=== PATIENT | female | born 1995 | race Caucasian/White ===

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

== ENCOUNTER 2017-08-04 05:20 | Emergency (ER) | payer SELFPAY ==
[2017-08-04] MEDS ORDERED: IPRATROPIUM/ALBUTEROL SULFATE 3 ML AMPUL.NEB NEB ONE ×2 (05:54→05:55)
[2017-08-04] MEDS ORDERED: ALBUTEROL SULFATE 2.5 MG/3 ML AMPUL.NEB NEB ONE (05:56)
--- NOTE | 2017-08-04 06:01 | ED Physician Documentation ---
Dyspnea - HISTORIAN Historian: patient - HPI Stated Complaint: difficulty breathing Chief Complaint: Dyspnea Additional Information: PT SOB WHEEZING HX ASTHMA OUT OF ALBUTEROL Onset: other (PRKOGRESSIVE SINCE YESTERDAY PM) Duration: continues in ED Initiating Event: out of meds. denies: exposure to smoke Severity: moderate Exacerbated By: change in position, exertion, coughing Associated Symptoms: none - ROS CONST: other (JUST SOB) EYES/ENT: denies: problems with vision, sore throat GI/: denies: problems urinating, vomiting MS/SKIN/LYMPH: none. denies: muscle aches - PAST HX Lung Disease: asthma PE Risk Factors: none Surgeries/Procedures: other (FACIAL RECONSTRUCTION) Other History: none Immunizations: UTD Allergies/Adverse Reactions: Allergies Allergy/AdvReac Type Severity Reaction Status Date / Time No Known Drug Allergies Allergy Verified 08/04/17 05:27 - SOCIAL HX Smoking History: non-smoker Alcohol Use: none Drug Use: none - FAMILY HX Family History: no significant history - VITAL SIGNS Vital Signs: Vital Signs Temp Pulse Resp BP Pulse Ox 97.6 F 83 18 133/92 98 08/04/17 05:24 08/04/17 05:24 08/04/17 05:24 08/04/17 05:24 08/04/17 05:24 - REVIEWED ASSESSMENTS Nursing Assessment Reviewed: Yes Vitals Reviewed: Yes ED Results Lab/Radiology - Orders Orders: ED Orders Category Date Time Status Albuterol Sulfate [Ventolin] Med 08/04/17 05:56 Once 2.5 mg NEB NOW ONE Ipratropium/Albuterol Sulfate [Duoneb] Med 08/04/17 05:54 Discontinued 3 ml NEB .STK-MED ONE Ipratropium/Albuterol Sulfate [Duoneb] Med 08/04/17 05:55 Once 3 ml NEB NOW ONE Dyspnea Physical Exam - EXAM General Appearance: moderate distress, other (KIANA W LIZZY FREITAS IN AMBULANCE) EENT: eye inspection normal Respiratory: no resp. distress, prolonged expirations, wheezes, rales CVS: reg. rate & rhythm, no murmur, pulses equal Abdomen: non-tender Skin: no rash. No: cyanosis, diaphoresis Extremities: non-tender, normal range of motion, no evidence of injury, no edema Neuro/Psych: oriented x3, motor nml, sensation nml, mood/affect nml Discharge Clincal Impression: acute exaberation asthma, pt out of albuterol medicine Referrals: Nicole Waller MD [Primary Care Provider] - 2 Days Comments: pt responded well to the two treatments stating she desires go home--we will order renewed alb nebulizer Condition: Good Disposition: 01 HOME, SELF-CARE Decision to Admit: NO Decision Time: 06:53
[2017-08-04 07:08] VITALS: BP 122/77
== END 2017-08-04 06:59 | disposition home or self-care (01) ==
LOC: ED 05:20
DX: J45.901 Unspecified asthma with (acute) exacerbation (principal)
CPT/HCPCS: 99283

== ENCOUNTER 2018-05-08 13:35 | Emergency (ER) | payer SELFPAY ==
--- NOTE | 2018-05-08 13:59 | ED Physician Documentation ---
General Adult - HISTORIAN Historian: patient, spouse - HPI Stated Complaint: back pain Chief Complaint: General Adult Additional Information: A week ago, had two days of right flank pain. That resolved, and yesterday she had L flank pain and that continues today. Has not had fever, urinary frequency or dysuria. Feels some pressure in her back with a deep breath. No treatment attempted. No other modifying factors or associated signs. - ROS CONST: denies: fever NEURO/PSYCH: headache (yesterday, resolved with ibuprofen) - PAST HX Past History: other (depression) Allergies/Adverse Reactions: Allergies Allergy/AdvReac Type Severity Reaction Status Date / Time No Known Drug Allergies Allergy Verified 09/15/17 05:15 Home Medications: Ambulatory Orders Medication Instructions Recorded Cyclobenzaprine HCl [Flexeril] 10 mg PO HS #7 tablet 05/08/18 - SOCIAL HX Smoking History: non-smoker - FAMILY HX Family History: No - VITAL SIGNS Vital Signs: Vital Signs Temp Pulse Resp BP Pulse Ox 126/88 09/15/17 06:33 - REVIEWED ASSESSMENTS Nursing Assessment Reviewed: Yes Vitals Reviewed: Yes Progress - Progress Progress: 1430, feel better after toradol and norflex ED Results Lab/Radiology - Orders Orders: ED Orders Category Date Time Status URINALYSIS Routine Lab 05/08/18 Ordered URINE HCG [URINE HCG] Stat Lab 05/08/18 Uncollected General Adult Physical Exam - PHYSICAL EXAM GENERAL APPEARANCE: mild distress EENT: eye inspection normal, ENT inspection normal NECK: normal inspection RESPIRATORY: no resp distress, breath sounds normal CVS: reg rate & rhythm, heart sounds normal, no murmur BACK: normal inspection, no CVA tenderness, other (no vertebral tenderness) EXTREMITIES: normal range of motion (gait and stance), no evidence of injury NEURO: CN's nml as tested, motor nml, sensation nml, cognition normal Discharge Clincal Impression: Strain of lumbar paraspinal muscle Qualifiers: Encounter type: initial encounter Qualified Code(s): S39.012A - Strain of muscle, fascia and tendon of lower back, initial encounter Referrals: Nicole Waller MD [Primary Care Provider] - 2 Days Additional Instructions: Ice or gentle heat to the sore areas for 30 minutes of each hour you are awake, followed by gentle stretching. You can take 1000 mg or tylenol every 8 hours if needed for discomfort. You can also take 600 mg ibuprofen with food every 8 hours if needed. Condition: Good Disposition: HOME, SELF-CARE Decision to Admit: NO Decision Time: 14:37
[2018-05-08] MEDS ORDERED: ORPHENADRINE CITRATE 60 MG/2ML IM ONE (14:03)
[2018-05-08] MEDS ORDERED: KETOROLAC TROMETHAMINE 60 MG/2 ML VIAL IM ONE (14:03)
[2018-05-08 14:07] LABS: APPEARANCE,URINE CLEAR (CLEAR); COLOR,URINE YELLOW (YELLOW); OCCULT BLOOD,URINE NEGATIVE (NEGATIVE); URINE HCG NEGATIVE (NEGATIVE); UROBILINOGEN URINE 0.2 Eu (0.2-1.0)
[2018-05-08 14:59] VITALS: BP 126/66
== END 2018-05-08 14:40 | disposition home or self-care (01) ==
LOC: ED 13:35
DX: S39.012A Strain of muscle, fascia and tendon of lower back, initial encounter (principal); X58.XXXA Exposure to other specified factors, initial encounter; Y92.9 Unspecified place or not applicable; Y93.9 Activity, unspecified; Y99.9 Unspecified external cause status
CPT/HCPCS: 81002; 81025; J1885; J2360; 96372; 99284

== ENCOUNTER 2018-10-23 02:13 | Emergency (ER) | payer SELFPAY ==
--- NOTE | 2018-10-23 02:23 | ED Physician Documentation ---
Female Urogenital Problems - HISTORIAN Historian: patient - HPI Stated Complaint: vaginal bleeding Chief Complaint: Female Urogenital Problems Additional Information: Patient presents to ED with vaginal bleeding after taking pill. Patient states she took the pill this morning. Throughout the day she has had heavy bleeding but tonight she passed a large clot (the size of her hand). After that she became light-headed and nauseated. Onset: hours (2) Severity: moderate - Vaginal Bleeding Compared to Menstrual Periods: severe, passing tissue Sexual History: active Contraceptive: other ( pill) - Associated Symptoms Urinary Symptoms: none - ROS CONST: none GI/: nausea CVS/RESP: none EYES/ENT: none NEURO/PSYCH: none MS/SKIN/LYMPH: none - PAST HX Past History: induced Other History: none Surgeries/Procedures: none Allergies/Adverse Reactions: Allergies Allergy/AdvReac Type Severity Reaction Status Date / Time No Known Drug Allergies Allergy Verified 09/15/17 05:15 Home Medications: Ambulatory Orders Medication Instructions Recorded Cyclobenzaprine HCl [Flexeril] 10 mg PO HS #7 tablet 05/08/18 Ondansetron HCl Rapdis [Zofran Odt] 4 mg PO Q8 PRN #15 tab 10/23/18 - SOCIAL HX Smoking History: non-smoker Alcohol Use: none Drug Use: none - FAMILY HX Family History: none - VITAL SIGNS Vital Signs: Vital Signs Temp Pulse Resp BP Pulse Ox 126/66 05/08/18 14:57 - REVIEWED ASSESSMENTS Nursing Assessment Reviewed: Yes Vitals Reviewed: Yes Progress - Progress Progress: 0300 Patient feeling better after some fluids and Zofran. Female Urogenital Problems - EXAM General Appearance: no acute distress EENT: WILL Neck: nml inspection Respiratory: no resp. distress, breath sounds nml CVS: reg rate & rhythm, heart sounds normal Abdomen: soft, non-tender, nml bowel sounds Rectal: deferred Pelvic: deferred Back: non-tender Skin: warm,dry, pallor Extremities: non-tender, no edema Neuro: oriented X3, motor nml Discharge Clincal Impression: Prescriptions: Ondansetron HCl Rapdis [Zofran Odt] 4 mg PO Q8 PRN #15 tab PRN Reason: Nausea / Vomiting Referrals: Nicole Waller MD [Primary Care Provider] - 2 Days Additional Instructions: 1. Ibuprofen as needed for pain/cramping. You may take Tylenol together with ibuprofen for better pain control 2. Zofran as needed for nausea. Rx sent to [facility] 3. Follow up with PCP within 1 week 4. Return to ER for new or worsening symptoms. Condition: Stable Disposition: 01 HOME, SELF-CARE Decision to Admit: NO Date of Decison to Admit: 10/23/18 Decision Time: 03:07
[2018-10-23] MEDS ORDERED: 0.9 % SODIUM CHLORIDE 1,000 ML IV ONE ×2 (02:35→02:42)
[2018-10-23] MEDS ORDERED: ONDANSETRON HCL/PF 4 MG/ 2ML VIAL IVP ONE (02:37)
[2018-10-23 04:36] VITALS: BP 104/58
[2018-10-27 09:10] LABS: BASOPHILS % 0.6 (0.0-1.5); EOSINOPHILS % 2.2 % (0.0-6.8); MEAN CORPUSCULAR HEMOGLOBIN 28.6 pg (28.0-34.0); MONOCYTES % 5.1 % (0.0-11.0); NEUTROPHILS # 8.7 # k/uL (1.4-7.7)
== END 2018-10-23 03:55 | disposition home or self-care (01) ==
LOC: ED 02:13
DX: O03.9 Complete or unspecified spontaneous abortion without complication (principal)
CPT/HCPCS: 36415; 85025; 96374; 99283; 99284; J2405; J7030; S1016

== ENCOUNTER 2019-04-24 09:00 | Emergency (ER) | payer SELFPAY ==
[2019-04-24 09:15] VITALS: BP 145/92
--- NOTE | 2019-04-24 09:19 | ED Physician Documentation ---
Skin Rash - HPI Stated Complaint: bug bite Chief Complaint: Insect Bite Additional Information: Patient is a 23-year-old female who presents to the ER with a ? bug bite to the left medial bicep and forearm. She c/o redness and swelling to the affected sites. Noticed them yesterday morning. She denies any fever, chills, nausea or vomiting. Onset: days ago Timing: still present Duration: persistent since Location: LUE Quality: itchy, burning Identified Cause?: No (appears to look like a sting) When Did Symptoms Start: 04/23/19 Where: other (friends) Context: Medication Exposure: none Context: Food Exposure: none - ROS CONST: none CVS/RESP: none EYES/ENT: none GI/: none MS/SKIN/LYMPH: none NEURO/PSYCH: none - PAST HX Past History: other (depression) Other History: none Surgeries/Procedures: Yes (D&C, Facial Reconstruction) Immunizations: UTD Allergies/Adverse Reactions: Allergies Allergy/AdvReac Type Severity Reaction Status Date / Time No Known Drug Allergies Allergy Verified 04/24/19 09:10 Home Medications: Ambulatory Orders Medication Instructions Recorded Cephalexin [Keflex] 500 mg PO Q6 #40 capsule 04/24/19 - SOCIAL HX Smoking History: non-smoker Alcohol Use: none Drug Use: marijuana - FAMILY HX Family History: none - VITAL SIGNS Vital Signs: Vital Signs Temp Pulse Resp BP Pulse Ox 98.6 F 79 16 145/92 100 04/24/19 09:02 04/24/19 09:02 04/24/19 09:02 04/24/19 09:02 04/24/19 09:02 - REVIEWED ASSESSMENTS Nursing Assessment Reviewed: Yes Vitals Reviewed: Yes Skin Rash Physical Exam - EXAM General Appearance: no acute distress, alert Skin: warm,dry, erythema Location: extremities (left upper arm) Character: other (circular) Symptoms: warmth, tenderness, swelling Extremities: non-tender, nml ROM, no edema EENT: eyes nml inspection, lips nml, pharynx nml Neck: no swelling Respiratory: breath sounds normal CVS: heart sounds nml Neuro/Psych: oriented x3, CN's nml as tested, motor nml, sensation nml, mood/affect nml Discharge Clincal Impression: Insect bite of left upper arm Prescriptions: Cephalexin [Keflex] 500 mg PO Q6 #40 capsule Referrals: Nicole Waller MD [Primary Care Provider] - 2 Days Condition: Good Disposition: 01 HOME, SELF-CARE Decision to Admit: NO Decision Time: 09:20
== END 2019-04-24 09:22 | disposition home or self-care (01) ==
LOC: ED 09:00
DX: S40.862A Insect bite (nonvenomous) of left upper arm, initial encounter (principal); W57.XXXA Bitten or stung by nonvenomous insect and other nonvenomous arthropods, initial encounter
CPT/HCPCS: 99281; 99284